=== PATIENT | male | born 1990 | race Caucasian/White ===

== ENCOUNTER 2017-07-02 11:29 | Observation (INO) ==
--- NOTE | 2017-07-02 11:38 | Emergency Department Note ---
Overdose - MDM Narrative Medical decision making narrative: Case was discussed with poison control he recommended cardiac monitoring for at least 12 hours watching for prolongation of QT intervals. At this point he could be medically cleared and can have a consult with [facility] for this suicide attempt case was discussed with Dr. Ruiz and he accepts admit - Lab Data Lab results reviewed: Yes I reviewed the patient's lab results. - Radiology Data Radiology results reviewed: Yes I reviewed the patient's radiology results. - EKG Data EKG attestation: Yes I reviewed and interpreted this EKG. EKG results narrative: EKG shows a relative sinus tachycardia with a rate of 105 bpm NC interval 134 ms. He rastafarian 95 ms. QTc interval 351 ms QTc interval 412 ms R axis 35 degrees per my read EKG shows normal: sinus rhythm Rate: tachycardia Overdose HPI - General Chief Complaint: ED Overdose Stated Complaint: took unknown amt of tylenol pm and lexapro Time Seen by Provider: 07/02/17 11:29 Source: patient Mode of arrival: ambulatory Limitations: no limitations Nursing Notes Reviewed: Yes Vital Signs Reviewed: Yes - History of Present Illness HPI Narrative: Patient complains of having a weak moment at home with family problems. He took a handful of Lexapro and Tylenol at about 9:30 he says. He denies any headache sore throat shortness of breath chest pain belly pain diarrhea rashes your symptoms or other complaints His significant other states they have been together for about 2 years supposed to been on psychiatric medications but they cannot afford it. Today she told him I did not think that they should be together anymore so he took about 20 Lexapro 10 mg each and about 20 - 500 mg Tylenol tablets at about 9:30 this morning after stating he was going to kill himself. Pt Subjective Complaint: intentional overdose Onset (ago): hour(s) (at 0930) Intent: suicide attempt Treatments Prior to Arrival: none - Related Data Home Medications Medication Instructions Recorded Confirmed No Known Home Drugs 07/02/17 07/02/17 Allergies Allergy/AdvReac Type Severity Reaction Status Date / Time No Known Allergies Allergy Verified 07/02/17 11:30 All systems ED: reviewed and negative except as stated. Review of Systems: As Per HPI Constitutional: Denies: fever, chills, weakness, weight change Eyes: Denies: eye pain, eye discharge, vision change ENT ED: Denies: ear pain, throat pain, dental pain, hearing loss, epistaxis, congestion, dysphagia Cardiovascular: Denies: chest pain, palpitations, dyspnea on exertion, edema, syncope Respiratory: Denies: cough, dyspnea, wheezes, hemoptysis, stridor Gastrointestinal: Denies: abdominal pain, nausea, vomiting, diarrhea, constipation, hematemesis, melena, hematochezia Genitourinary: Denies: urgency, dysuria, frequency, hematuria Musculoskeletal: Denies: back pain, neck pain, arthralgia, myalgia Integumentary: Denies: rash, abrasion, lesions Neurological: Denies: headache, weakness, numbness, paresthesias, confusion, abnormal gait, vertigo Psychiatric: Reports: suicidal thoughts Endocrine: Denies: fatigue Hematological/Lymphatic: Denies: easy bleeding, easy bruising Allergic/Immunologic: Denies: facial swelling, urticaria Past Medical History - Past Medical History Attestation: Yes The following information was validated with the patient. Source: patient Medical history: Reports: no medical history Psychiatric history: Reports: anxiety, bipolar, depression - Social History Smoking Status: Never smoker Smokeless Tobacco Status: No Alcohol use: Reports: none Drug use: Reports: none Physical Exam - General Limitations: no limitations General appearance: alert - Head Head exam: atraumatic, normocephalic, normal inspection - Eye Eye exam: Present: normal appearance, PERRL, EOMI - ENT ENT exam: normal exam, normal oropharynx, mucous membranes moist - Neck Neck exam: Present: normal inspection, full ROM, trachea midline - Chest Chest inspection: Present: normal inspection, symmetric chest wall rise - Respiratory Respiratory exam: Present: normal lung sounds bilaterally - Cardiovascular Cardiovascular exam: Present: regular rate, tachycardia (rate of 113) - Abdominal Exam Abdominal exam: Present: soft, Non-Tender, normal bowel sounds - Extremities Exam Extremities exam: Present: normal inspection - Back Exam Back exam: Present: normal inspection - Neurological Exam Neurological exam: Present: alert, oriented X3 - Psychiatric Psychiatric exam: Present: normal affect, normal mood - Skin Skin exam: Present: warm, dry, intact Disposition Clinical Impression: Drug overdose Disposition: Admitted As Inpatient Condition: Good
[2017-07-02 12:11] LABS: Basophils % 0.4 %; Eosinophils # 0.2 K/mcL (0.0-0.6); Eosinophils % 1.7 %; Hematocrit 46.4 % (37.5-50.1); Immature Granulocytes % 0.4 % (0-4); Lymphocytes # 1.1 K/mcL (0.6-4.6); Lymphocytes % 10.3 %; Mean Corpuscular HGB Conc 34.5 g/dL (31.6-35.5); Mean Corpuscular Hemoglobin 28.5 pg (28.0-33.3); Mean Corpuscular Volume 82.7 fL (83.0-100.0); Mean Platelet Volume 8.9 fL (9.4-12.4); Monocytes # 0.8 K/mcL (0.0-1.3); Monocytes % 7.1 %; Neutrophils # 8.7 K/mcL (1.6-8.9); Platelet Count 353 K/mcL (140-400); Red Blood Count 5.61 M/mcL (4.19-5.50); Red Cell Distribution Width 11.7 % (11.5-14.5); Segmented Neutrophils % 80.1 %
[2017-07-02 12:16] LABS: Bilirubin,Urine Negative (Negative); Blood,Urine Negative (Negative); Clarity,Urine Clear (Clear); Color,Urine Yellow (Yellow); Glucose,Urine (UA) Normal (Normal); Ketones,Urine Negative (Negative); Leukocyte Esterase,Urine Negative (Negative); Nitrite,Urine Negative (Negative); Protein,Urine 30 mg/dL (Neg-Trace); Specific Gravity,Urine 1.015 (1.010-1.025); Urobilinogen,Urine Normal (Normal)
[2017-07-02 12:22] LABS: Activated Partial Thrombo Time 25.8 Seconds (26.0-36.0)
[2017-07-02 12:28] LABS: Amphetamine Screen,Urine Negative ng/mL (Cutoff=1000); Barbiturate Screen,Urine Negative ng/mL (Cutoff=200); Benzodiazepines Screen,Urine Negative ng/mL (Cutoff=200); Cannabinoid Screen,Urine Negative ng/mL (Cutoff = 50); Cocaine Screen,Urine Negative ng/mL (Cutoff= 300); Opiate Screen,Urine Negative ng/mL (Cutoff=300); Phencyclidine Screen,Urine Negative ng/mL (Cutoff=25)
[2017-07-02 12:30] LABS: Acetaminophen 51 mcg/mL (10-20); Alanine Aminotransferase 19 Units/L (7-52); Albumin 4.4 g/dL (3.5-5.7); Albumin/Globulin Ratio 1.4 (1.1-2.2); Alkaline Phosphatase 88 Units/L (34-104); Aspartate Amino Transferase 15 Units/L (13-39); BUN/Creatinine Ratio 13 (6-26); Bilirubin,Total 0.4 mg/dL (0.3-1.0); Blood Urea Nitrogen 10 mg/dL (6-20); Calcium 9.4 mg/dL (8.6-10.3); Carbon Dioxide 26 mEq/L (23-29); Chloride 103 mEq/L (98-107); Ethanol < 10 mg/dL (Less than 10); Globulin 3.1 g/dL (2.4-3.5); Glucose 117 mg/dL (70-105); Osmolality,Calculated 282 (280-300); Potassium 3.7 mEq/L (3.5-5.1); Salicylate < 2.5 mg/dL (15.0-30.0); Sodium 136 mEq/L (136-145); Total Protein 7.5 g/dL (6.4-8.9); eGFR For African Americans > 60 (> 60); eGFR For Non-African Americans > 60 (> 60)
[2017-07-02 12:40] LABS: Bacteria,Urine Few per hpf (None-Few); Calcium Oxalate Crystals,Urine Present; Granular Casts,Urine Moderate per lpf (None Seen); RBC,Urine 0-3 per hpf (0-3); Squamous Epithelial Cell,Urine Few per lpf (None-Few); WBC,Urine 0-3 per hpf (0-3); White Blood Cell Casts,Urine Few per lpf (None Seen)
[2017-07-02] MEDS ORDERED: Naloxone 0.4 MG/ML INJ IVP PRN (15:38)
[2017-07-02] MEDS ORDERED: 0.9 % Sodium Chloride 1,000 ML IVC SCH (15:38)
[2017-07-03 10:20] VITALS: BP 148/84
--- NOTE | 2017-07-03 11:05 | Internal Med History&Physical ---
Date of Encounter: 07/03/17 Time of Encounter: 10:35 Assessment and Plan (1) Drug overdose Current visit: Yes Status: Acute He will be seen by mental health clinic personnel to determine stability for discharge. Qualifiers: Encounter type: initial encounter Injury intent: intentional self-harm Qualified Code(s): T50.902A - Poisoning by unspecified drugs, medicaments and biological substances, intentional self-harm, initial encounter Internal Medicine - H&P: HPI Chief complaint: Drug overdose Admitted From: Emergency Dept Plans for Post Hospital Care: Home History of present illness: Mr. Majano is a 26 year old male who came to emergency room stating she had felt emotionally overwhelmed earlier in the day and had taken a handful of Lexapro and Tylenol. He immediately felt remorse for his actions and attempted to vomit. He was unable to vomit so came to emergency room. He was evaluated and admitted to [facility] floor for ongoing care needs. He states he acted unwisely in swallowing the pills. He claims no desire to harm himself or others. He denies previous suicide attempts. Reports a history of depression in his early teenage years but has not taken medication for several years. He denies anxiety or other mental health issues. He denies alcohol or recreational drug use otherwise. Past Med Surg Social Fam HX - Past Medical History Medical history: no medical history Psychiatric history: anxiety, bipolar, depression - Social History Smoking Status: Never smoker Smokeless Tobacco Status: No Alcohol use: none Drug use: none Internal Medicine - H&P: Meds No Known Home Drugs 07/02/17 [History] 3 Allergy/AdvReac Type Severity Reaction Status Date / Time No Known Allergies Allergy Verified 07/02/17 11:30 All Systems PM: A 10-system review of systems was performed and is negative for pertinent findings except as documented above in the HPI. Review of systems: Gen.: He states his weight has been stable the past few months Cardiovascular: He denies hypertension VT heart failure angina DVT or pulmonary embolus Respiratory: He is a lifelong nonsmoker and has no known chronic lung disease GI: He denies disorders of his liver gallbladder or exocrine pancreas : He denies hematuria dysuria or kidney stones Neurologic: He denies seizures syncope migraine headaches or other neurologic problems Endocrine: He denies diabetes thyroid disease or hyperlipidemia Hematology/oncology: He denies blood disorders cancers or anemia Psychiatric: As per history of present illness [place] skeletal: He denies arthritis gout or other bone joint or muscle disorders. - Constitutional Vitals: Temp Pulse Resp BP Pulse Ox 98.3 F 89 16 148/84 97 07/03/17 10:19 07/03/17 10:19 07/03/17 10:19 07/03/17 10:19 07/03/17 10:19 Exam: Gen.: He is a well-developed well-nourished male resting comfortably in bed who appears in no acute distress HEENT: Head is atraumatic and normocephalic. Eyes: EOMI. There is no scleral icterus. Mouth: Mucosa is moist. Neck: Supple and nontender. There is no thyromegaly or adenopathy noted. Heart: Regular without murmurs gallops or ectopics Lungs: No wheezes or crackles are heard. Abdomen: Soft and nontender. No masses or guarding are noted. Extremities: There is no cyanosis edema or clubbing noted. Dorsalis pedis and posttibial pulses are 1-2 over 2 bilaterally. Neurologic: Mental status: He is talkative and a good historian. Cranial nerves : Smile is symmetric. Forehead wrinkles bilaterally. Tongue protrudes midline. EOMI. Motor: There is no pronator drift. Cerebellar: Finger to nose is intact bilaterally. Skin: Warm and dry Internal Med - H&P Results - Labs CBC & Chem 7: 07/02/17 12:03 07/02/17 12:03
--- NOTE | 2017-07-03 12:40 | Discharge Summary ---
Date of Encounter: 07/03/17 Time of Encounter: 10:35 - Discharge Diagnosis (1) Drug overdose Priority: Primary Status: Acute Qualifiers: Encounter type: initial encounter Injury intent: intentional self-harm Qualified Code(s): T50.902A - Poisoning by unspecified drugs, medicaments and biological substances, intentional self-harm, initial encounter Hospital course: Mr. Majano is a 26 year old male who came to emergency room stating she had felt emotionally overwhelmed earlier in the day and had taken a handful of Lexapro and Tylenol. He immediately felt remorse for his actions and attempted to vomit. He was unable to vomit so came to emergency room. He was evaluated and admitted to [facility] for ongoing care needs. Initial orders were written by the emergency room physician. I saw him on July 03 and performed the history and physical. He was evaluated by personnel from mental health clinic. It was felt he was stable for discharge home and he will follow-up as instructed by them for ongoing mental health services. - Time Spent with Patient Total time spent providing and/or coordinating discharge services: - Discharge Medications Home Medications: No Known Home Drugs 07/02/17 [History] Allergies/Adverse Reactions: 3 Allergy/AdvReac Type Severity Reaction Status Date / Time No Known Allergies Allergy Verified 07/02/17 11:30 Date of admission: 07/02/17 15:26 Primary care physician: PCP NONE Consults: 07/02/17 15:45 Consult to Steward/[employer] [CONS] Routine Reason for SW Consult: patient homeless, living in car - Constitutional Vitals: Temp Pulse Resp BP Pulse Ox 98.3 F 89 16 148/84 97 07/03/17 10:19 07/03/17 10:19 07/03/17 10:19 07/03/17 10:19 07/03/17 10:19 - Patient Status Disposition: Home, Self-Care Condition: Good Overall status at discharge: patient is progressing back to baseline - Discharge Instructions Follow Up With: NONE,PCP [Primary Care Provider] - 1 week - Diet and Activity Activity: resume usual activities as tolerated Diet: advance to your usual diet
--- NOTE | 2017-07-03 12:41 | Electrocardiograph Report ---
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
--- NOTE | 2017-07-03 12:43 | Electrocardiograph Report ---
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
--- NOTE | 2017-07-03 12:45 | Electrocardiograph Report ---
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
== END 2017-07-03 13:30 | disposition home or self-care (01) ==
LOC: INPPIK 11:29 → EMEROOPIK 11:29 → INPPIK 15:33
PROVIDERS: ADMIT Internal Medicine; ATTEND Internal Medicine